=== PATIENT | female | born 1950 | race Asian ===

== ENCOUNTER 2022-03-02 05:30 | Inpatient (IN) | payer OTHER ==
[2022-02-27 16:22] LABS: BILIRUBIN,URINE NEGATIVE (NEGATIVE); BLOOD, URINE NEGATIVE (NEGATIVE); CLARITY/URINE CLEAR (CLEAR); COLOR,URINE YELLOW (YELLOW); GLUCOSE,URINE NEGATIVE (NEGATIVE); KETONES,URINE NEGATIVE (NEGATIVE); NITRITE, URINE NEGATIVE (NEGATIVE); PH,URINE 6.5 (5.0-8.0); PROTEIN URINE NEGATIVE (NEGATIVE); UROBILINOGEN,URINE 0.2 (0.2-1.0)
[2022-02-27 16:24] LABS: BASOPHILS % (AUTO) 0.4 % (0.0-2.0); EOSINOPHILS # (AUTO) 0.1 K/uL (0.0-0.4); EOSINOPHILS % (AUTO) 1.7 % (0.0-4.0); HEMATOCRIT 36.5 % (36-48); HEMOGLOBIN 12.5 g/dL (12.0-16.0); LYMPHOCYTES # (AUTO) 2.3 K/uL (1.0-5.5); LYMPHOCYTES % (AUTO) 42.4 % (20.5-51.5); MEAN CORPUSCULAR HEMOGLOBIN 33 pg (27-31); MEAN CORPUSCULAR HGB CONC 34 % (32-36); MEAN CORPUSCULAR VOLUME 97 fL (79.0-98.0); MONOCYTES # (AUTO) 0.5 K/uL (0.0-1.0); MONOCYTES % (AUTO) 9.1 % (1.7-9.3); NEUTROPHILS # (AUTO) 2.5 K/uL (1.8-7.7); NEUTROPHILS % (AUTO) 46.4 % (40.0-70.0); PLATELET COUNT (AUTO) 269 K/uL (130-430); RED BLOOD CELL COUNT(AUTO) 3.78 MIL/uL (4.2-6.2); RED CELL DISTRIBUTION WIDTH 12.8 % (9.0-15.0); WHITE BLOOD COUNT (AUTO) 5.4 K/uL (4.8-10.8)
[2022-02-27 16:44] LABS: CALCIUM 9.9 mg/dL (8.4-11.0); CREATININE 1.28 mg/dL (0.55-1.30)
[2022-02-27 16:51] LABS: LEUKOCYTE ESTERASE ,URINE TRACE (NEGATIVE)
[2022-02-27 17:00] LABS: PROTHROMBIN TIME 10.4 SECS (9.5-12.5)
[2022-02-27 17:26] LABS: BACTERIA,URINE FEW /HPF (None Seen); MUCUS,URINE None Seen /LPF (None Seen); RBC,URINE NONE SEEN /HPF (0-3)
[~2022-03-02] VITALS: Ht 149.9 cm; Wt 58.1 kg
[~2022-03-02 05:30] MED LIST: DET2 PO; EZET10TA30 PO; FENO160 PO; HYDR-3927 PO; RIVA10TA PO; xeralto
[2022-03-02] MEDS ORDERED: ONDANSETRON HCL 4 MG/2 ML VIAL IVP ONE (07:44)
[2022-03-02] MEDS ORDERED: SEVOFLURANE 15 MIN GAS INH ONE (07:44)
[2022-03-02] MEDS ORDERED: BUPIVACAINE /EPINEPHRINE/PF 0.25% 30 ML VIAL INJ ONE (07:44)
[2022-03-02] MEDS ORDERED: BUPIVACAINE /PF 0.25% 30 ML VIAL INJ ONE (07:44)
[2022-03-02] MEDS ORDERED: CEFAZOLIN 2 GM IVPB PREMIX 50 ML IV ONE (07:44)
[2022-03-02] MEDS ORDERED: TRANEXAMIC ACID 1,000 MG/10 ML VIAL IV ONE (07:44)
[2022-03-02] MEDS ORDERED: NS IRRIG SOLN 1000 ML IR ONE (07:44)
[2022-03-02] MEDS ORDERED: KETOROLAC TROMETHAMINE 30 MG VIAL IVP ONE (07:44)
[2022-03-02] MEDS ORDERED: LR 1,000 ML IV.SOLN IV ONE (07:44)
[2022-03-02] MEDS ORDERED: NS 1000 ML IV.SOLN IV ONE (07:44)
[2022-03-02] MEDS ORDERED: ROCURONIUM BROMIDE 10 MG/ML (ZEMURON) IV ONE (07:44)
[2022-03-02] MEDS ORDERED: PROPOFOL 200MG/ 20ML VIAL (DIPRIVAN) IV ONE (07:44)
[2022-03-02] MEDS ORDERED: METF500S9 PO (10:10)
[2022-03-02] MEDS ORDERED: CELE200C PO (10:12)
[2022-03-02] MEDS ORDERED: GLUC-119 PO (10:14)
[2022-03-02] MEDS ORDERED: DEXTROSE 50% JECT 50 ML DISP.SYRIN IVP PRN (10:15)
[2022-03-02] MEDS ORDERED: GLUCOSE (DEXTROSE) ORAL GEL -Adults PO PRN (10:15)
[2022-03-02] MEDS ORDERED: DIPHENHYDRAMINE HCL 25 MG CAPSULE PO PRN (10:15)
[2022-03-02] MEDS ORDERED: INSULIN REGULAR, HUMAN 100 UNITS/ML, 3 ML VIAL (humuLIN R) SUBCUT PRN (10:15)
[2022-03-02] MEDS ORDERED: D5W 1,000 ML IV PRN (10:15)
[2022-03-02] MEDS ORDERED: BISACODYL 10 MG/SUPPOSITORY RC PRN (10:15)
[2022-03-02] MEDS ORDERED: METOCLOPRAMIDE HCL 10 MG/2 ML VIAL IVP PRN (10:15)
[2022-03-02] MEDS ORDERED: NALOXONE HCL 0.4 MG/ML AMP (NARCAN) IVP PRN ×5 (10:15→11:30)
[2022-03-02] MEDS ORDERED: LACTULOSE 20 GM/30 ML UDC PO PRN (10:15)
[2022-03-02] MEDS ORDERED: FERR159T2 PO ×2 (10:16→11:49)
[2022-03-02] MEDS ORDERED: oxyCODONE HCL 5 MG TABLET PO PRN (11:00)
[2022-03-02] MEDS ORDERED: LABETALOL 100 MG/ 20ML VIAL IVP PRN (11:00)
[2022-03-02] MEDS ORDERED: traMADol HCL HCL 50 MG TABLET (ULTRAM) PO PRN (11:00)
[2022-03-02] MEDS ORDERED: ONDANSETRON HCL 4 MG/2 ML VIAL IVP PRN ×2 (11:00→11:45)
[2022-03-02] MEDS ORDERED: LR 1,000 ML IV SCH (11:00)
[2022-03-02] MEDS ORDERED: HYDROmorphone 1 MG/ML INJ. CARTRIDGE IVP PRN ×4 (11:00)
[2022-03-02] MEDS ORDERED: LORATADINE 10 MG TABLET PO PRN (11:00)
[2022-03-02] MEDS ORDERED: PYRI250T8 PO (11:52)
--- NOTE | 2022-03-02 11:53 | NUR ---
Spoke with Lawanda Mora at [employer] phone [phone]/FAX [phone]-She was faxed medical information-she will be finding SNF placement for the patient.
[2022-03-02] MEDS ORDERED: VITA1CAP PO (11:54)
[2022-03-02] MEDS ORDERED: ASCO500T20 PO (11:54)
[2022-03-02] MEDS ORDERED: CALC200T47 PO (11:55)
[2022-03-02] MEDS ORDERED: TURM1CAP2 PO (11:56)
[2022-03-02] MEDS ORDERED: RESEYE OP (11:57)
[2022-03-02 12:10] VITALS: BP_SYST 114
--- NOTE | 2022-03-02 12:10 | NUR ---
OPENING NOTE PT TRANSFERRED FROM PACU FOR S/P RIGHT KNEE ARTHROPLASTY. POLAR CARE TUBE CONNECTED TO RIGHT KNEE. IV LR RUNNING. NO IV RELATED COMPLICATION NOTED. ENCOURAGED TO USE CALL LIGHT FOR ASSISTANCE. VS: 96.6, 114/85,72,95%AT RT, 16. DENIES ACUTE DISTRESS. RECEIVED LOCAL ANESTHESIA. WILL CONTINUE TO MONITOR.
[2022-03-02] MEDS ORDERED: FERR324T22 PO (12:47)
[2022-03-02] MEDS: ceFAZolin SODIUM 2 GM in D5W 50 ML IV SCH ×2 (13:41→21:16)
[2022-03-02] MEDS: ACETAMINOPHEN 500 MG TABLET PO SCH ×2 (13:42→21:15)
[2022-03-02] MEDS: KETOROLAC TROMETHAMINE 10 MG TABLET (TORADOL) PO SCH ×2 (13:43→22:00)
[2022-03-02 14:23] VITALS: BP_SYST 124
--- NOTE | 2022-03-02 16:10 | NUR ---
[facility] PT REQUESTED BEDPAN. YELLOW AND CLEAN URINE NOTED. PROVIDED BINU CARE. CHANGED GOWN.
--- NOTE | 2022-03-02 19:15 | NUR ---
CLOSING NOTE PROVIDED SBAR TO NIGHT SHIRT NURSE. PT IN BED, RESTING WITH EVEN AND NON-LABORED BREATHING. DENIES ANY DISCOMFORT OR PAIN AT THIS TIME. IV SITE REMAIN CLEAN AND PATENT. BED IS LOCKED AND AT LOW POSITION. ENCOURAGED TO USE CALL LIGHT FOR ASSISTANCE. ENDORSED CARE
[2022-03-02] MEDS: SENNOSIDES/DOCUSATE SODIUM 1 TAB TABLET(SENOKOT-S) PO SCH (21:00)
[2022-03-03 00:43] VITALS: BP_SYST 95
[2022-03-03] MEDS: KETOROLAC TROMETHAMINE 10 MG TABLET (TORADOL) PO SCH (06:00)
[2022-03-03] MEDS: ceFAZolin SODIUM 2 GM in D5W 50 ML IV SCH (06:00)
[2022-03-03 06:44] LABS: BASOPHILS % (AUTO) 0.2 % (0.0-2.0); EOSINOPHILS % (AUTO) 0.4 % (0.0-4.0); HEMATOCRIT 29.8 % (36-48); HEMOGLOBIN 10.4 g/dL (12.0-16.0); LYMPHOCYTES # (AUTO) 2.4 K/uL (1.0-5.5); LYMPHOCYTES % (AUTO) 26.2 % (20.5-51.5); MEAN CORPUSCULAR HEMOGLOBIN 34 pg (27-31); MEAN CORPUSCULAR HGB CONC 35 % (32-36); MEAN CORPUSCULAR VOLUME 97 fL (79.0-98.0); MONOCYTES # (AUTO) 0.6 K/uL (0.0-1.0); MONOCYTES % (AUTO) 6.9 % (1.7-9.3); NEUTROPHILS # (AUTO) 6.1 K/uL (1.8-7.7); NEUTROPHILS % (AUTO) 66.3 % (40.0-70.0); PLATELET COUNT (AUTO) 222 K/uL (130-430); RED BLOOD CELL COUNT(AUTO) 3.06 MIL/uL (4.2-6.2); WHITE BLOOD COUNT (AUTO) 9.2 K/uL (4.8-10.8)
[2022-03-03 06:56] LABS: ALBUMIN 3.3 g/dL (3.4-4.8); CALCIUM 8.5 mg/dL (8.4-11.0); CREATININE 0.8 mg/dL (0.55-1.30); POTASSIUM 4.1 mmol/L (3.5-5.1); TOTAL BILIRUBIN 0.5 mg/dL (0.0-1.0)
--- NOTE | 2022-03-03 07:30 | NUR ---
Opening Notes Pt. is AAOx4, resting comfortably in bed, cool therapy is in place, legs elevated. Fall precautions in place.
[2022-03-03] MEDS ORDERED: DEC1 PO (07:43)
[2022-03-03] MEDS ORDERED: ASA81 PO (07:43)
[2022-03-03] MEDS ORDERED: ACET-2634 PO (07:43)
[2022-03-03] MEDS ORDERED: OXYIR5 PO (07:43)
[2022-03-03] MEDS ORDERED: CEFA250S32 PO (07:43)
[2022-03-03] MEDS ORDERED: SENN-22 PO (07:43)
[2022-03-03 08:10] VITALS: BP_SYST 99
[2022-03-03] MEDS: SENNOSIDES/DOCUSATE SODIUM 1 TAB TABLET(SENOKOT-S) PO SCH ×2 (09:08→21:26)
[2022-03-03] MEDS: ACETAMINOPHEN 500 MG TABLET PO SCH ×3 (09:09→21:26)
[2022-03-03] MEDS: ASPIRIN 81 MG TAB.CHEW PO SCH ×2 (09:09→21:26)
[2022-03-03 12:53] VITALS: BP_SYST 105
[2022-03-03] MEDS: DEXAMETHASONE 1 MG TABLET (DECADRON) PO SCH (13:23)
[2022-03-03] MEDS: CELECOXIB 200 MG CAPSULE PO SCH ×2 (13:32→22:18)
--- NOTE | 2022-03-03 15:00 | NUR ---
CM: Snf order and referral package faxed to [facility] and to Bethany at [facility]/worker's comp by ANDREZ Major .
--- NOTE | 2022-03-03 16:28 | NUR ---
Midshift note: Pt. is AAOx4, no signs of acute distress. Pt. has been able to ambulate with PT. No nausea and diet has been advanced, pt. is tolerating diet well. Pain managed by prn pain meds.
[2022-03-03 16:44] VITALS: BP_SYST 101
--- NOTE | 2022-03-03 17:05 | NUR ---
CM: updated Bethany at [facility]/Worker's [employer] # [phone] [id number] , dcp to snf vs acute rehab. The pt requested [facility] where she had prior TKA treatment in November. Per Bethany, she is sending referral to [facility] in [place] as well. This facility is about 12 miles from the patient resident. >> S/w Nory/ [facility] , the patient is clinically accepted but pending authorization. She will call Bethany for the auth, and there will be bed available tomorrow.
[2022-03-03] MEDS: oxyCODONE HCL 5 MG TABLET PO PRN (18:48)
--- NOTE | 2022-03-03 19:30 | NUR ---
Opening note Pt is awake lying in bed on the phone, a/o x4. No s/s of respiratory distress. Breathing even and unlabored on RA. IV site intact and patent saline lock. Pt is post-op right knee arthroplasty yesterday, dressing CDI. Does not c/o pain at this moment due to pain medication given by day nurse. Cool therapy is in place. Fall and safety precautions in place with bed in lowest position, bed alarm on, and call light within reach.
[2022-03-03 20:00] VITALS: BP_SYST 109
--- NOTE | 2022-03-04 00:15 | NUR ---
Rounds Pt lying in bed, eyes closed. No s/s of acute distress. VSS. Fall and safety checks in place
[2022-03-04 01:19] VITALS: BP_SYST 100
[2022-03-04] MEDS: ACETAMINOPHEN 500 MG TABLET PO SCH ×3 (06:14→22:24)
--- NOTE | 2022-03-04 06:32 | NUR ---
Closing note Pt is awake watching TV. No s/s of acute distress. Breathing even and unlabored on RA. IV site intact and patent saline lock. Cool therapy device removed and given ice packs. Right knee elevated and supported with pillows. Pain medication administered. All needs met throughout shift. Fall and safety precautions in place with bed in lowest position, bed alarm on, and call light within reach
[2022-03-04 07:59] VITALS: BP_SYST 102
--- NOTE | 2022-03-04 08:00 | NUR ---
OPENING NOTES Pt. is AAOX4, no signs of acute distress, currently eating breakfast. Fall precautions in place, refusing pain medications until after breakfast.
[2022-03-04] MEDS: ASPIRIN 81 MG TAB.CHEW PO SCH ×2 (09:33→21:02)
[2022-03-04] MEDS: SENNOSIDES/DOCUSATE SODIUM 1 TAB TABLET(SENOKOT-S) PO SCH ×2 (09:34→21:03)
[2022-03-04] MEDS: cephALEXin 500 MG CAPSULE PO SCH ×3 (09:34→21:03)
[2022-03-04] MEDS: oxyCODONE HCL 5 MG TABLET PO PRN ×2 (09:35→17:26)
[2022-03-04] MEDS: DEXAMETHASONE 1 MG TABLET (DECADRON) PO SCH (09:35)
[2022-03-04 12:07] VITALS: BP_SYST 161
[2022-03-04] MEDS: CELECOXIB 200 MG CAPSULE PO SCH (13:10)
--- NOTE | 2022-03-04 14:52 | NUR ---
CM: late entry: per Bethany/[facility] [phone] , the patient was pre-approved for snf x 3 weeks, not to an acute rehabilitation facility. So that she can not approve [facility] per pt 's request. I informed the pt, she disagreed. She said she was told by her insurance executive that [facility] was pre-approved for rehab. She wanted to appeal to the insurance. I followed again with pt, she said she call Merary and Kayla but did not get return call. She would not agree with the transfer until she heard from the insurance.
[2022-03-04 16:12] VITALS: BP_SYST 149
--- NOTE | 2022-03-04 16:39 | NUR ---
MIDSHIFT NOTE Pt. is AAox4, no reports of pain. Pt. has ambulated 2 times around the unit and has been ambulating to the bathroom with FWW, tolerated well. Pain managed with scheduled and PRN pain medications. Fall precautions in place.
[2022-03-05 01:30] VITALS: BP_SYST 102
[2022-03-05] MEDS: CELECOXIB 200 MG CAPSULE PO SCH ×2 (03:14→11:47)
[2022-03-05] MEDS: ACETAMINOPHEN 500 MG TABLET PO SCH ×2 (06:49→14:21)
[2022-03-05 08:16] VITALS: BP_SYST 102
[2022-03-05] MEDS: ASPIRIN 81 MG TAB.CHEW PO SCH (08:25)
[2022-03-05] MEDS: SENNOSIDES/DOCUSATE SODIUM 1 TAB TABLET(SENOKOT-S) PO SCH (08:25)
[2022-03-05] MEDS: DEXAMETHASONE 1 MG TABLET (DECADRON) PO SCH (08:25)
[2022-03-05] MEDS: cephALEXin 500 MG CAPSULE PO SCH ×2 (08:25→14:30)
[2022-03-05 08:26] VITALS: BP_SYST 115
--- NOTE | 2022-03-05 08:27 | NUR ---
DR BERRIOS OFFICE RECEIVED CALL FROM DR BERRIOS OFFICE. IOANA RG. PER ARCENIO PATIENT HAS AUTHORIZATION TO SNF. PER ARCENIO, AUTHORIZATION WAS APPROVED PRIOR SURGERY. REQUESTED ARCENIO TO FAX COPY
[2022-03-05 11:32] VITALS: BP_SYST 118
--- NOTE | 2022-03-05 13:00 | NUR ---
CM: late entry: Communication with [facility], Claude/[facility] [phone] and the patient: Informed pt early this am that so far [facility] still did not get approval despite the appeal. I requested her to make decision for [facility] in [place] vs [facility] in [place] since now she agreed with snf placement. The pt wanted to screen the snf fri. I provided her with the contact numbers for both facilities. After she spoke with the snf, she chose [facility]. Per Claude: gave verbal auth # [id number] to any accepting snf. I spoke with Sead at [facility] # [phone] , said the pt is accepted and received bed assignement# 325 with pending hard copy auth from [employer]. I notified [facility] of the above info and requested the auth for [facility] and call me back with ambulance auth vs transportation arrangement. Bethany said the auth may take up to 72 hrs to process. Again I asked to expedite the auth approval for today. Addendum: 03/05/22 at 1557 by Dmitri Napier RN [facility]: Seda got the hard auth copy from [employer], confirmed bed # 325 , call report to RN Testing Lead # [phone]. LVM to Bethany to call back with transportation auth or provide the arrangement /belt picker time. Patient made aware that she will be transferred to snf once has the ambulance set up and belt picker time. Patient agrees with the discharge plan. SHAGUFTA Barfield made aware to do the Covid screening with stat order and to include the result in the dc package.
--- NOTE | 2022-03-05 14:18 | NUR ---
DR BERRIOS OFFICE RECEIVED CALL FROM MD OFFICE. I WAS INFORMED THAT PATIENT IS NOW AGREEING TO TRANSFER TO [facility]. BERTHA IS AWARE
[2022-03-05 15:29] VITALS: BP_SYST 136
[2022-03-05 16:35] VITALS: BP_SYST 136
--- NOTE | 2022-03-05 19:30 | NUR ---
Assumed care of patient awake,alert,oriented. VSS. afebrile. to be discharged [id number]
--- NOTE | 2022-03-05 20:21 | NUR ---
AMBULANCE HERE TO TRANSFER PATIENT TO FACILITY. IV REMOVED.. VSS. DENIES PAIN. BELONGINGSTAKEN WITH PATIENT. ALL QUESTIONS ANSWERED.
--- NOTE | 2022-03-06 08:18 | NUR ---
Dispo code 03
== END 2022-03-05 20:21 | DRG 470 ==
LOC: SMU 05:30
PROVIDERS: ADMIT Student in an Organized Health Care Education/Training Program; ATTEND Student in an Organized Health Care Education/Training Program
PROC: 0SRC0J9 Replacement of Right Knee Joint with Synthetic Substitute, Cemented, Open Approach (ICD-10-PCS; principal; 2022-03-02 07:45)
DX: M17.11 Unilateral primary osteoarthritis, right knee (principal); Z20.822 Contact with and (suspected) exposure to COVID-19
CPT/HCPCS: 36415; 71046-TC; 73560-TC; 80048; 80053; 81000; 82962; 85025; 85610-TC; 85730-TC; 87081; 88305; 88311; 93005; 94010; 96379; 97110-GP; 97116-GP; 97530-GP; J0690; J1170; J1885; J2405; J2704; J3490; J7030; J7060; J7120; U0003

== ENCOUNTER 2022-07-08 13:26 | Emergency (ER) | payer BC, OTHER ==
[~2022-07-08] VITALS: Ht 149.9 cm; Wt 59.0 kg
[~2022-07-08 13:26] MED LIST changes: +ACET-2634 PO; +ASA81 PO; +ASCO500T20 PO; +CALC200T47 PO; +CEFA250S32 PO; +DEC1 PO; +FERR324T22 PO; +GLUC-119 PO; -HYDR-3927 PO; +METF500S9 PO; +OXYIR5 PO; +PYRI250T8 PO; +RESEYE OP; -RIVA10TA PO; +SENN-22 PO; +TURM1CAP2 PO; +VITA1CAP PO; -xeralto
[2022-07-08 13:28] VITALS: BP_SYST 131
--- NOTE | 2022-07-08 13:31 | NUR ---
BROUGHT BACK TO BED #3 AND TRIAGED. REPORT GIVEN TO ROBBIE
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
--- NOTE | 2022-07-08 14:14 | NUR ---
ER at bedside examining patient.
[2022-07-08] MEDS ORDERED: ACETAMINOPHEN 325 MG TABLET PO ONE (14:15)
--- NOTE | 2022-07-08 14:36 | NUR ---
PT TAKEN OFF MONITOR AND TAKEN TO C/T SCAN.
[2022-07-08 15:40] VITALS: BP_SYST 126
--- NOTE | 2022-07-08 15:40 | NUR ---
Patient given written and verbal discharge instructions and verbalizes understanding. ER MD Saldana discussed with patient the results and treatment provided. Patient in stable condition. ID arm band removed. no rx given. Patient educated on pain management and to follow up with PMD. Pain Scale 2/10 Opportunity for questions provided and answered.
== END 2022-07-08 15:40 | disposition home or self-care (01) ==
LOC: SED 13:26
DX: S09.90XA Unspecified injury of head, initial encounter (principal); E11.9 Type 2 diabetes mellitus without complications; Z88.8 Allergy status to other drugs, medicaments and biological substances; Z79.899 Other long term (current) drug therapy; V43.62XA Car passenger injured in collision with other type car in traffic accident, initial encounter; Y93.89 Activity, other specified; Y92.89 Other specified places as the place of occurrence of the external cause; Y99.8 Other external cause status
CPT/HCPCS: 70450-TC; 72125-TC; 76376; 99284